=== PATIENT | male | born 1995 | race African-American/Black ===

== ENCOUNTER 2016-11-09 10:29 | Emergency (ER) | payer SELFPAY ==
[2016-11-09 10:56] VITALS: BMI 31.8
[2016-11-09] MEDS ORDERED: NS 1,000 ML IV ONE ×2 (11:03)
[2016-11-09] MEDS ORDERED: MORPHINE 4 MG/ML INJECTION IV ONE (11:03)
[2016-11-09] MEDS ORDERED: ONDANSETRON HCL 4 MG/2 ML VIAL IV ONE (11:03)
[2016-11-09] MEDS ORDERED: SODIUM CHLORIDE 0.9% 3 ML FLUSH FLUSH PRN (11:03)
[2016-11-09 11:12] LABS: AUTOMATED BASOPHIL 0.5 % (0-2); AUTOMATED EOSINOPHIL 0.8 % (0-5); AUTOMATED LYMPH 13.7 % (17-44); AUTOMATED MONOCYTE 4.9 % (3-10); AUTOMATED NEUTROPHIL 80.1 % (45-76); MPV 9.8 fL (7.4-10.4)
--- NOTE | 2016-11-09 11:13 | EDPRACDOC ---
- General Information Information Source: Patient Mode Of Arrival: Car - History of Present Illness Onset: 429 Pain Location: Reports: RUQ (AND RIGHT SIDE) Pain Context: Reports: Spontaneous Pain Severity: Moderate Pain Quality: Reports: Aching (PRESSURE) Pain Radiation: Reports: No Radiation Modifying Factors: improves with: Movement Associated Signs & Symptoms: Reports: Nausea, Vomiting, Diarrhea Oral Intake: Decreased Urinary Output: Normal <Jeff Horowitz - Last Filed: 11/09/16 12:33> <Vincent Ferrer - Last Filed: 11/09/16 12:37> - General Information Chief Complaint: Abdominal Pain Stated Complaint: ABD PAIN, VOMITING Time Seen by Provider: 11/09/16 11:02 Home Medications: Home Medications Dicyclomine HCl [Bentyl] 20 mg PO Q6H #20 tablet 11/09/16 Hydrocodone Bit/Acetaminophen [Hydrocodon-Acetaminophen 5-325] 1 - 2 tab PO Q4- 6H PRN #15 tab 11/09/16 Ondansetron [Zofran Odt] 4 mg PO Q6H #20 tab.rapdis 11/09/16 Allergies/Adverse Reactions: Allergies Allergy/AdvReac Type Severity Reaction Status Date / Time No Known Allergies Allergy Verified 11/09/16 11:17 - History of Present Illness HPI: PT C/O RIGHT SIDED ABD PAIN WITH N/V/D SINCE 429 WHEN IT WOKE HIM UP OUT OF SLEEP. (Jeff Horowitz) NOTE SEEN AND EXAMINED; ENTIRE CLINICAL PICTURE CW GASTROENTERITIS; NOT APPY; WILL DC WITH PRECAUTIONS (Vincent Ferrer) ED Past Medical History - History Reviewed Yes Nurses notes reviewed and agree except as marked Travel Outside of [place] in the Last 3 Months?: No No Past Medical History: Yes Patient has no past medical history - Patient Medical History Psychological History: Denies: Depression Surgical History: Reports: Tonsillectomy/Adnoidectomy - Social Medical History Smoking Status: Never smoker ETOH: None Substance Abuse: None Lives With: Other Lives In: Home <Jeff Horowitz - Last Filed: 11/09/16 12:33> EDM Review of Systems - Review of Systems ROS Negative Except as Marked: Yes All systems reviewed and were negative except as marked Constitutional: No Symptoms Reported. negative: Fever, Chills, Weakness, Fatigue, Loss of Appetite Eyes: No Symptoms Reported. negative: Redness, Blurred Vision, Double Vision, Discharge, Pain, Light Sensitive, Photophobia Ears: No Symptoms Reported. negative: Pain, Hearing Loss, Drainage, Ear Pulling Throat: No Symptoms Reported. negative: Pain, Swelling Nose: No Symptoms Reported. negative: Congestion, Bleeding, Discharge, Injection, Swelling, Deformity, Ecchymosis, Tender, Abrasion, Laceration Mouth: No Symptoms Reported. negative: Pain, Drooling Respiratory: No Symptoms Reported. negative: Cough, Brassy Cough, Barky Cough, Shortness of Breath, Wheezing, Hemoptysis Cardiovascular: No Symptoms Reported. negative: Chest Pain, Palpitations, Syncope, Edema, Orthopnea, PND, Skin Mottling, Cyanosis Gastrointestinal: Diarrhea, Nausea, Pain, Vomiting. negative: Constipation, Formula Intolerance, Melena Genitourinary: No Symptoms Reported. negative: Dysuria, Hematuria, Frequency, Discharge, Bleeding, Testicular Pain, Neurological: No Symptoms Reported. negative: Headache, Dizziness, Seizure, Numbness, Weakness, Speech Difficulty, Gait Difficulty Musculoskeletal: No Symptoms Reported. negative: Neck, Chestwall, Ribs, Back, Shoulder, Arm, Elbow, Forearm, Wrist, Hand, Pelvis, Hip, Femur, Knee, Leg, Ankle , Foot Integumentary: No Symptoms Reported. negative: Itching, Rash, Bruising, Wound Allergic/Immunologic: No Symptoms Reported. negative: Hives, Itching Hematologic: No Symptoms Reported. negative: Lymphadenopathy, Easy Bruising, Easy Bleeding Endocrine: No Symptoms Reported. negative: Weight Gain, Weight Loss Psychiatric: No Symptoms Reported. negative: Anxiety, Depression, Hallucinations, Insomnia, Suicidal <Jeff Horowitz - Last Filed: 11/09/16 12:33> - Physical Exam Constitutional: Alert (Awake), No apparent distress Oriented to: Time, Person, Place - HEENT Head: Normal ( normocephalic) Eye Exam: Normal (PERRL, EOMI, Sclera white) Oropharynx: Normal (Pharynx:Moist without exudate,Gums-no swelling) Tympanic Membrane: Normal ENT EAC: Normal TMJ: Normal Nose: No Symptoms Reported (septum midline) Neck: Normal (FROM, trachea at midline) - Respiratory/Cardiovascular Respiratory: Normal - CTA (BBS clear to auscultation without adventitious sounds ) Cardiovascular: Normal (RRR without murmur, gallop or rub) - GI Auscultation: Normal (NABS) Palpation: Normal (Soft,No rebound or guarding, non distended) Tenderness: Mild, Moderate, RUQ, Other (RIGHT SIDE, NEGATIVE [place] TENDERNESS) Burgess's Sign: Positive - Bladder: Normal - Musculoskeletal Back: Normal (Non-Tender) Extremities: Normal (Normal tone, Pulses 2+ No cyanosis or edema, FROM) - Integumentary Skin: Normal, Warm, Dry Lymphatics: Normal (no adenopathy) - Neurologic Memory Impaired: Normal Motor Function: Normal (Normal tone, Pulses 2+ No cyanosis or edema, FROM) Cranial Nerve: Normal (CN II-X11 intact sensation, strength 5/5) Cerebellar: Normal Mood Description: Normal Perception: Normal <Jeff Horowitz - Last Filed: 11/09/16 12:33> - Differential Diagnosis Cholecystitis, Cholelithiasis, Colic, Constipation, Gastroenteritis - Results 11/09/16 11:01 11/09/16 11:31 - Diagnostic Imaging CT ABD/PEL Image interpreted by: Radiologist <Jeff Horowitz - Last Filed: 11/09/16 12:33> - Results 11/09/16 11:01 11/09/16 11:31 <Vincent Ferrer - Last Filed: 11/09/16 12:37> - Results WBC 9.4 xk/uL (3.8-10.8) 11/09/16 11:01 RBC 5.40 xM/uL (4.70-6.10) 11/09/16 11:01 Hgb 15.8 g/dL (14.0-18.0) 11/09/16 11:01 Hct 47.7 % (42-52) 11/09/16 11:01 MCV 88 fL (80-94) 11/09/16 11:01 MCH 29.2 pg (27-32) 11/09/16 11:01 MCHC 33.0 g/dl (33-36) 11/09/16 11:01 RDW 13.1 % (11.5-14.5) 11/09/16 11:01 Plt Count 152 xk/uL (130-400) 11/09/16 11:01 MPV 9.8 fL (7.4-10.4) 11/09/16 11:01 Neut % (Auto) 80.1 % (45-76) H 11/09/16 11:01 Lymph % (Auto) 13.7 % (17-44) L 11/09/16 11:01 [place] % (Auto) 4.9 % (3-10) 11/09/16 11:01 Eos % (Auto) 0.8 % (0-5) 11/09/16 11:01 Baso % (Auto) 0.5 % (0-2) 11/09/16 11:01 Absolute Neuts (auto) 7.52 xk/uL (1.7-8.2) 11/09/16 11:01 Absolute Lymphs (auto) 1.22 xk/uL (0.65-4.75) 11/09/16 11:01 Sodium 140 mEq/L (137-146) 11/09/16 11:31 Potassium 3.8 mEq/L (3.5-5.1) 11/09/16 11:31 Chloride 104 mEq/L (98-107) 11/09/16 11:31 Carbon Dioxide 23 mMOL/L (22-33) 11/09/16 11:31 Anion Gap 17 mEq/L (8-16) H 11/09/16 11:31 BUN 16 MG/DL (9-20) 11/09/16 11:31 Creatinine 0.80 MG/DL (0.66-1.25) 11/09/16 11:31 Estimated GFR (MDRD) > 60 mL/min (>=60) 11/09/16 11:31 Glucose 113 mg/dL (70-99) H 11/09/16 11:31 Calculated Osmolality 271 MOs/Kg (270-290) 11/09/16 11:31 Calcium 9.6 MG/DL (8.4-10.2) 11/09/16 11:31 Total Bilirubin 0.6 MG/DL (0.2-1.3) 11/09/16 11:31 AST 25 IU/L (17-59) 11/09/16 11:31 ALT 36 IU/L (21-72) 11/09/16 11:31 Alkaline Phosphatase 54 IU/L (38-126) 11/09/16 11:31 Total Protein 7.6 G/DL (6.3-8.2) 11/09/16 11:31 Albumin 4.2 G/DL (3.5-5.0) 11/09/16 11:31 Lipase 37 U/L (23-300) 11/09/16 11:31 Urine Color Yellow 11/09/16 12:03 Urine Clarity Clear 11/09/16 12:03 Urine pH 9.0 (5.0-8.0) H 11/09/16 12:03 Ur Specific [place] </=1.005 (1.003-1.035) 11/09/16 12:03 Urine Protein 1+ (NEG/TRACE) H 11/09/16 12:03 Urine Glucose (UA) Neg (NEGATIVE) 11/09/16 12:03 Urine Ketones Neg (NEGATIVE) 11/09/16 12:03 Urine Occult Blood Neg (NEG/TRACE) 11/09/16 12:03 Urine Nitrite Neg (NEGATIVE) 11/09/16 12:03 Urine Bilirubin Neg (NEGATIVE) 11/09/16 12:03 Urine Urobilinogen <2.0 MG/DL (0-1) 11/09/16 12:03 Ur Leukocyte Esterase Neg (NEGATIVE) 11/09/16 12:03 Urine RBC 0-2 (0-2) 11/09/16 12:03 Urine WBC 0-2 (0-2) 11/09/16 12:03 Ur Epithelial Cells Occ 11/09/16 12:03 Urine Bacteria Few (NEG/FEW) 11/09/16 12:03 Urine Mucus Occ (NEG/OCC) 11/09/16 12:03 Urine Opiates Screen *positive* (NEGATIVE) H 11/09/16 12:03 Ur Oxycodone Screen *positive* (NEGATIVE) H 11/09/16 12:03 Urine Methadone Screen Neg (NEGATIVE) 11/09/16 12:03 Ur Barbiturates Screen Neg (NEGATIVE) 11/09/16 12:03 Ur Tricyclics Screen Neg (NEGATIVE) 11/09/16 12:03 Ur Phencyclidine Scrn Neg (NEGATIVE) 11/09/16 12:03 Ur Amphetamines Screen Neg (NEGATIVE) 11/09/16 12:03 U Methamphetamines Scrn Neg (NEGATIVE) 11/09/16 12:03 Urine MDMA Screen Neg (NEGATIVE) 11/09/16 12:03 U Benzodiazepines Scrn Neg (NEGATIVE) 11/09/16 12:03 Urine Cocaine Screen Neg (NEGATIVE) 11/09/16 12:03 Ur THC Screen *positive* (NEGATIVE) H 11/09/16 12:03 Plasma/Serum Ethyl Alc % (<0.01) 11/09/16 11:31 Lab Results 11/09/16 11/09/16 11/09/16 12:03 12:03 11:31 WBC RBC Hgb Hct MCV MCH MCHC RDW Plt Count MPV Neut % (Auto) Lymph % (Auto) [place] % (Auto) Eos % (Auto) Baso % (Auto) Absolute Neuts (auto) Absolute Lymphs (auto) Sodium 140 Potassium 3.8 Chloride 104 Carbon Dioxide 23 Anion Gap 17 H BUN 16 Creatinine 0.80 Estimated GFR (MDRD) > 60 Glucose 113 H Calculated Osmolality 271 Calcium 9.6 Total Bilirubin 0.6 AST 25 ALT 36 Alkaline Phosphatase 54 Total Protein 7.6 Albumin 4.2 Lipase 37 Urine Color Yellow Urine Clarity Clear Urine pH 9.0 H Ur Specific [place] </=1.005 Urine Protein 1+ H Urine Glucose (UA) Neg Urine Ketones Neg Urine Occult Blood Neg Urine Nitrite Neg Urine Bilirubin Neg Urine Urobilinogen <2.0 Ur Leukocyte Esterase Neg Urine RBC 0-2 Urine WBC 0-2 Ur Epithelial Cells Occ Urine Bacteria Few Urine Mucus Occ Urine Opiates Screen *positive* H Ur Oxycodone Screen *positive* H Urine Methadone Screen Neg Ur Barbiturates Screen Neg Ur Tricyclics Screen Neg Ur Phencyclidine Scrn Neg Ur Amphetamines Screen Neg U Methamphetamines Scrn Neg Urine MDMA Screen Neg U Benzodiazepines Scrn Neg Urine Cocaine Screen Neg Ur THC Screen *positive* H Plasma/Serum Ethyl Alc 11/09/16 11:01 WBC 9.4 RBC 5.40 Hgb 15.8 Hct 47.7 MCV 88 MCH 29.2 MCHC 33.0 RDW 13.1 Plt Count 152 MPV 9.8 Neut % (Auto) 80.1 H Lymph % (Auto) 13.7 L [place] % (Auto) 4.9 Eos % (Auto) 0.8 Baso % (Auto) 0.5 Absolute Neuts (auto) 7.52 Absolute Lymphs (auto) 1.22 Sodium Potassium Chloride Carbon Dioxide Anion Gap BUN Creatinine Estimated GFR (MDRD) Glucose Calculated Osmolality Calcium Total Bilirubin AST ALT Alkaline Phosphatase Total Protein Albumin Lipase Urine Color Urine Clarity Urine pH Ur Specific [place] Urine Protein Urine Glucose (UA) Urine Ketones Urine Occult Blood Urine Nitrite Urine Bilirubin Urine Urobilinogen Ur Leukocyte Esterase Urine RBC Urine WBC Ur Epithelial Cells Urine Bacteria Urine Mucus Urine Opiates Screen Ur Oxycodone Screen Urine Methadone Screen Ur Barbiturates Screen Ur Tricyclics Screen Ur Phencyclidine Scrn Ur Amphetamines Screen U Methamphetamines Scrn Urine MDMA Screen U Benzodiazepines Scrn Urine Cocaine Screen Ur THC Screen Plasma/Serum Ethyl Alc (Vincent Ferrer) - Diagnostic Imaging CT ABD/PEL 11/09/16 12:18 Patient Name: ARISTEO PALOMO LOC: ED : 1995 AGE: 20 Order Date:11/09/16 Date of Service: 11/09/16 Report # [id number] Ord Physician: Jeff Horowitz Exam # [id number] Emergency Physician: Provider,ER Exam(s): [id number] CT/CT ABD-PELV W/IV CM CLINICAL DATA: Right-sided abdominal pain, nausea, vomiting, diarrhea EXAM: CT ABDOMEN AND PELVIS WITH CONTRAST TECHNIQUE: Multidetector CT imaging of the abdomen and pelvis was performed using the standard protocol following bolus administration of intravenous contrast. CONTRAST: 100 mL Isovue 370 COMPARISON: None. FINDINGS: Lower chest: Clear lung bases. Normal heart size. Hepatobiliary: Normal liver. Normal gallbladder. Pancreas: Normal. Spleen: Normal. Adrenals/Urinary Tract: Normal adrenal gland, kidneys and bladder. Stomach/Bowel: No bowel wall thickening. No bowel dilatation. Air-fluid levels throughout the small bowel and colon. No pneumatosis, pneumoperitoneum or portal venous gas. No abdominal or pelvic free fluid. Dilated appendix measuring up to 12 mm. Vascular/Lymphatic: Normal caliber abdominal aorta. No lymphadenopathy. Other: No fluid collection or hematoma. Musculoskeletal: No lytic or sclerotic osseous lesion. No acute osseous abnormality. IMPRESSION: 1. Dilated appendix measuring up to 12 mm without right lower quadrant free fluid, periappendiceal inflammatory changes or adjacent fluid collection. This may reflect normal anatomic variance versus early acute appendicitis. Correlation with clinical exam and lab findings is recommended. 2. Small bowel and colonic air-fluid levels without dilatation suggesting an ileus which can be seen in the setting of acute appendicitis versus gastroenteritis. Electronically Signed By: Sylwia Rodriguez On: 11/09/2016 11:54 (Jeff Horowitz) - Additional Information APPY TALK GIVEN, PT AND FAMILY EXPRESSED UNDERSTANDING AND ENCOURAGED TO RETURN FOR WORSE OR DIFFERENT SYMPTOMS. (Jeff Horowitz) Decision Time to Discharge: 12:34 - Departure Disposition: Home Education/Counseling Given To: Patient Education/Counseling Given Regarding: Diagnosis, Treatment, Prognosis, Follow Up <Jeff Horowitz - Last Filed: 11/09/16 12:33> <Vincent Ferrer - Last Filed: 11/09/16 12:37> - Departure Condition: Stable Final Diagnosis: Abdominal pain, Nausea vomiting and diarrhea Instructions: Acute Nausea and Vomiting (ED), Acute Abdominal Pain (ED) Referrals: None,No Provider [Primary Care Provider] - One Week Prescriptions: New Dicyclomine HCl [Bentyl] 20 mg PO Q6H #20 tablet Hydrocodone Bit/Acetaminophen [Hydrocodon-Acetaminophen 5-325] 1 - 2 tab PO Q4-6H PRN #15 tab PRN Reason: Pain Ondansetron [Zofran Odt] 4 mg PO Q6H #20 tab.rapdis Additional Instructions: RETURN FOR WORSE OR DIFFERENT SYMPTOMS, INCREASE PO FLUIDS.
[2016-11-09 11:50] LABS: BLOOD UREA NITROGEN 16 MG/DL (9-20); CALCIUM 9.6 MG/DL (8.4-10.2); CALCULATED OSMOLALITY 271 MOs/Kg (270-290); CHLORIDE 104 mEq/L (98-107); ETOH-MGDL < 10 mg/dL; GLUCOSE 113 mg/dL (70-99); SODIUM LEVEL 140 mEq/L (137-146); TOTAL PROTEIN 7.6 G/DL (6.3-8.2)
--- NOTE | 2016-11-09 11:57 | DIRPT ---
CLINICAL DATA: Right-sided abdominal pain, nausea, vomiting, diarrhea EXAM: CT ABDOMEN AND PELVIS WITH CONTRAST TECHNIQUE: Multidetector CT imaging of the abdomen and pelvis was performed using the standard protocol following bolus administration of intravenous contrast. CONTRAST: 100 mL Isovue 370 COMPARISON: None. FINDINGS: Lower chest: Clear lung bases. Normal heart size. Hepatobiliary: Normal liver. Normal gallbladder. Pancreas: Normal. Spleen: Normal. Adrenals/Urinary Tract: Normal adrenal gland, kidneys and bladder. Stomach/Bowel: No bowel wall thickening. No bowel dilatation. Air-fluid levels throughout the small bowel and colon. No pneumatosis, pneumoperitoneum or portal venous gas. No abdominal or pelvic free fluid. Dilated appendix measuring up to 12 mm. Vascular/Lymphatic: Normal caliber abdominal aorta. No lymphadenopathy. Other: No fluid collection or hematoma. Musculoskeletal: No lytic or sclerotic osseous lesion. No acute osseous abnormality. IMPRESSION: 1. Dilated appendix measuring up to 12 mm without right lower quadrant free fluid, periappendiceal inflammatory changes or adjacent fluid collection. This may reflect normal anatomic variance versus early acute appendicitis. Correlation with clinical exam and lab findings is recommended. 2. Small bowel and colonic air-fluid levels without dilatation suggesting an ileus which can be seen in the setting of acute appendicitis versus gastroenteritis. Electronically Signed By: Sylwia Rodriguez On: 11/09/2016 11:54
[2016-11-09] MEDS ORDERED: Pharmacy Review for Metformin - IV Contrast Given SCH (12:00)
[2016-11-09 12:09] LABS: ALL NEG? NO
[2016-11-09 12:18] LABS: MDMA* NEG (NEGATIVE); METHAMPHETAMINES NEG (NEGATIVE); OXYCODONE *POSITIVE* (NEGATIVE)
[2016-11-09 12:20] LABS: LEUKOCYTES/URINE NEG (NEGATIVE); NITRITE/URINE NEG (NEGATIVE); RBC/URINE 0-2 (0-2); URINE OCCULT BLOOD NEG (NEG/TRACE); WBC/URINE 0-2 (0-2)
[2016-11-09 12:44] VITALS: BP 124/62; PULSE 84; TEMP 98.6
[2016-11-09] MEDS ORDERED: SODIUM CHLORIDE 0.9% 3 ML FLUSH FLUSH SCH (18:00)
== END 2016-11-09 12:43 | disposition home or self-care (01) ==
LOC: ED 10:29
DX: R11.2 Nausea with vomiting, unspecified (principal); R10.9 Unspecified abdominal pain; R19.7 Diarrhea, unspecified
CPT/HCPCS: 36415; 74177; 80053; 80307; 81001; 83690; 85025; 96374; 96375; 99283; A9698; J2270; J2405; 99282